=== PATIENT | female | born 1990 | race African-American/Black ===

== ENCOUNTER 2016-09-30 08:20 | Inpatient (IN) | payer BC ==
[2016-09-30] VITALS (9 sets, daily range): BP systolic 101–122; BP diastolic 60–77; Ht 157.5 cm; Wt 67.7 kg
[~2016-09-30] VITALS: Ht 157.5 cm; Wt 67.7 kg
[~2016-09-30 08:20] MED LIST: HYDROCODON-ACE1 EAC7 PO; IBUPROFEN600 MG
[2016-09-30 09:08] LABS: BASOPHILS 0.1 % (0.0-2.0); EOSINOPHILS 0.1 % (0-7); HEMATOCRIT 29.7 % (36.0-48.0); HEMOGLOBIN 9.9 g/dL (12-16); IMMATURE GRANULOCYTES 0.2 % (0-5); LYMPHOCYTES 6.3 % (15-50); MCH 28.2 pg (26.0-34.0); MCHC 33.3 g/dL (31.0-37.0); MCV 84.6 fL (80.0-100.0); MEAN PLATELET VOLUME 9.9 fL (7.4-10.4); MONOCYTES 2.9 % (2-11); NEUTROPHILS 90.4 % (40-80); RBC 3.51 10x6/uL (4.00-5.40)
[2016-09-30 09:15] LABS: HCG SERUM POSITIVE (NEGATIVE)
[2016-09-30 09:16] LABS: PLATELET COUNT 217 10x3/uL (130-400)
[2016-09-30 09:22] LABS: ALBUMIN 3.7 g/dL (3.4-5.0); ALKALINE PHOSPHATASE 69 U/L (46-116); ALT (SGPT) 17 U/L (10-68); AMYLASE - SERUM 31 U/L (25-115); BILIRUBIN - TOTAL 0.21 mg/dL (0.2-1.3); CALC OSMOLALITY 276 mosm/kg (275-300); CALCIUM 8.8 mg/dL (8.5-10.1); CARBON DIOXIDE 22.9 mmol/L (21.0-32.0); CHLORIDE - SERUM 105 mmol/L (98-107); CREATININE - SERUM 0.7 mg/dL (0.6-1.3); GLUCOSE 132 mg/dL (74-106); LIPASE 54 U/L (73-393); POTASSIUM - SERUM 3.4 mmol/L (3.5-5.1); PROTEIN - SERUM 7.1 g/dL (6.4-8.2); SODIUM 138 mmol/L (136-145); UREA NITROGEN 9 mg/dL (7-18); eGFR NON AFRICAN AMERICAN > 90 mL/min (90-120)
--- NOTE | 2016-09-30 16:16 | HP ---
PATIENT: WILTON BAUTISTA MEDICAL RECORD: [id number] ACCOUNT: [id number] LOCATION:[facility] : 91 ADMISSION DATE: 09/30/16 HISTORY AND PHYSICAL EXAMINATION HISTORY OF PRESENT ILLNESS: This patient is a 26-year-old 3, para 2 black female who presented to the Emergency Room with lower abdominal pain and cramping and was found to have a positive test unknown to her. Ultrasound reveals a in the cul-de-sac of about 5.3 weeks in size and bleeding in the abdomen. PAST MEDICAL HISTORY: DRUG ALLERGIES: None known. CURRENT MEDICATIONS: None. MEDICAL PROBLEMS: None known. PREVIOUS SURGERIES: None. FAMILY HISTORY: Noncontributory. REVIEW OF SYSTEMS: Positive for recent onset of abdominal pain and cramping, has not been using any control. HABITS: Nonsmoker. PHYSICAL EXAMINATION: VITAL SIGNS: Stable. HEENT: Grossly unremarkable. LUNGS: Clear. HEART: Regular rate and rhythm. ABDOMEN: Soft with tenderness throughout. PELVIC: Current per ER physician and not repeated. EXTREMITIES: No cyanosis, clubbing or edema. NEUROLOGIC: Grossly intact. IMPRESSION: Ectopic , bleeding. PLAN: Examination under anesthesia, laparoscopy, excision and removal of ectopic , control of bleeding, all indicated procedures. I have discussed this plan with the patient and answered all her questions and she agreed. TRANSINT:[id number] Voice Confirmation ID: [id number] DOCUMENT ID: [id number] HISTORY AND PHYSICAL [id number] WILTON BAUTISTA BRENDA MD at 1616 CC: [id number] DICTATION DATE: 09/30/16 1333 SUPERVISING EDITOR TRAILER: 09/30/[address] [facility] [address] [place] [address]
--- NOTE | 2016-09-30 19:20 | NUR ---
RECEIVED PATIENT FROM VIA BED AWAKE. TRANSFERRED TO BED WITHOUT DIFFICULTY. IVF--LR TO R AC @ 125cc/hr. IV SITE OK. GUEVARA CATH TO DRAINAGE BAG. V/S TAKEN. ASSESSMENT DONE. STATUS POST LAPAROSCOPY/ECTOPIC PREGRANCY. ORIENTED TO ROOM AND BED CONTROLS.
[2016-09-30 19:53] LABS: MCH 27.5 pg (26.0-34.0); MCHC 32.6 g/dL (31.0-37.0); MCV 84.4 fL (80.0-100.0); MEAN PLATELET VOLUME 9.9 fL (7.4-10.4); RDW 12.9 % (11.5-14.5)
[2016-09-30 19:56] LABS: RBC 2.62 10x6/uL (4.00-5.40); WBC 9.5 10x3/uL (4.8-10.8)
[2016-09-30 20:03] LABS: HEMATOCRIT 22.1 % (36.0-48.0); HEMOGLOBIN 7.2 g/dL (12-16)
--- NOTE | 2016-09-30 20:28 | NUR ---
PAIN LEVEL "5"/10 FROM ABD LAP INCISIONS. TORADOL 30mg IV GIVEN FOR BREAK-THROUGH PAIN.
--- NOTE | 2016-09-30 22:20 | NUR ---
FIRST UNIT OF PRBC STARTED WITH NICKO VALENCIA. V/S MONITORED EVERY 15min X4. NO ADVERSE REACTION NOTED.
[2016-10-01] VITALS (13 sets, daily range): BP systolic 97–114; BP diastolic 56–70
--- NOTE | 2016-10-01 00:50 | NUR ---
1ST UNIT OF PRBC INFUSED. NORMAL SALINE INFUSING.
--- NOTE | 2016-10-01 01:10 | NUR ---
2ND UNIT OF PRBC CHECKED AND STARTED WITH NICKO VALENCIA. V/S MONITORED EVERY 15min X4; 30min X2. NO ADVERSE REACTION NOTED.
--- NOTE | 2016-10-01 01:10 | NUR ---
SECOND UNIT OF PRBC STARTED AND CHECKED WITH NICKO VALENCIA. V/S MONITORED EVERY 15min X4.
--- NOTE | 2016-10-01 01:47 | NUR ---
GUEVARA CATH BAG EMPTIED. EYES CLOSED. LEFT UNDISTURBED.
--- NOTE | 2016-10-01 03:40 | NUR ---
2nd UNIT OF PRBC INFUSED. NO ADVERSE REACTION NOTED. NS INFUSING.
--- NOTE | 2016-10-01 04:15 | NUR ---
THIRD UNIT OF PRBC CHECKED AND STARTED WITH NICKO VALENCIA. V/S MONITORED EVERY 15min X4; 30min X2. NO ADVERSE REACTION NOTED.
--- NOTE | 2016-10-01 06:00 | NUR ---
GUEVARA SHIVANI PRICE'antonio. INSTRUCTED PATIENT SHE WILL NEED TO VOID WITH 4hrs AND TO CALL FOR ASSISTANCE WHEN GETTING OUT OF BED FOR THE FIRST TIME. WILL ALSO NEED TO MEASURE FIRST THREE VOIDS. VERBALIZED UNDERSTANDING.
--- NOTE | 2016-10-01 06:45 | NUR ---
THIRD UNIT OF PRBC INFUSED. NS INFUSING. NO ADVERSE REACTION NOTED.
--- NOTE | 2016-10-01 07:30 | NUR ---
RECEIVED PT LYING IN BED WATCHING TV. VSS. HEART RRR. LUNG SOUNDS CLEAR BILATERALLY. BOWEL SOUNDS ACTIVE X4 QUADRENTS. 3 LAPAROSCOPIC INCISIONS NOTED TO ABDOMEN COVERED WITH STERI STRIPS. DRESSINGS CDI. IV NOTED TO RIGHT AC. PATENT. DRESSING CDI. INFUSING NS @ 126 CC/HR. SCDS TO BLE. PT RATES PAIN 02/14. DENIES NEEDS AT THIS TIME. BED LOW. PHONE AND CALL LIGHT IN REACH. SIDE RAILS UP X2.
--- NOTE | 2016-10-01 07:42 | OP ---
PATIENT NAME: WILTON BAUTISTA MEDICAL RECORD: [id number] :89 LOCATION:[facility]1220 ADMISSION DATE:09/30/16 SURGEON: JAZLYN DAMON MD DATE OF OPERATION: 09/30/2016 PREOPERATIVE DIAGNOSIS: Ruptured ectopic . POSTOPERATIVE DIAGNOSIS: Ruptured ectopic . PROCEDURE: Laparoscopy, evacuation of hemoperitoneum and ectopic , left fimbriectomy. SURGEON: Jazlyn Damon MD ANESTHESIA: General. FINDINGS: Approximately 400 cc of blood and clots in the abdomen and pelvis, tissue consistent in appearance with ectopic in the cul-de-sac. Active bleeding from fimbriated end of left tube. ESTIMATED BLOOD LOSS: 75 cc from procedure. COMPLICATIONS: None. OPERATIVE NOTE: The patient was taken to the OR and under adequate general anesthesia, prepped and draped in the usual manner for abdominal and vaginal procedures with legs in floating boot Mirza stirrups. The anterior lip of the cervix was grasped with tenaculum. Intrauterine manipulator was placed and stabilized. Bladder was catheterized. An elliptical incision was made at the umbilicus and extended through subcutaneous tissue and fascia and peritoneum. The laparoscopic trocar sleeve was then inserted without difficulty. Abdomen was inflated with gas. A second and third puncture were then made in the lower abdomen, left lower quadrant and suprapubic area under direct visualization in order to allow manipulation of pelvic contents of surgical procedure. Exploration revealed the above listed findings. The blood and clots were evacuated from the abdomen and pelvis via suction. An area in the cul-de-sac appeared to have tissue consistent in appearance with ectopic . This was suctioned and fragments were gathered and sent to pathology for further evaluation. The pelvis and abdomen were again irrigated and observed and active bleeding was seen at the fimbriated end of the left tube and decision was made to remove this fimbriated end to stop the bleeding. This was done using bipolar cautery and the Harmonic scalpel. At the end of procedure, further irrigation was done and suctioning revealed no further bleeding. The tube appeared to be within normal limits. Ovaries appeared to be within normal limits. The abdomen was then deflated. All instruments removed. The fascial layer at the umbilicus and suprapubic incision were closed using interrupted #1 Vicryl suture. Skin incisions were closed using Dermabond. Steri-Strip dressing was applied. All instruments were removed from the vagina and the patient went to the recovery area in good condition. TRANSINT:[id number] Voice Confirmation ID: [id number] DOCUMENT ID: [id number] OPERATIVE REPORT [id number] WILTON BAUTISTA BRENDA MD at 0742 CC: [id number] DICTATION DATE: 09/30/161852 [employer] FITTER: 09/30/161952 ADM IN [place] [id number] [place] [address]
[2016-10-01 07:50] LABS: MCH 28.9 pg (26.0-34.0); MCV 85.1 fL (80.0-100.0); MEAN PLATELET VOLUME 10.2 fL (7.4-10.4); RDW 13.5 % (11.5-14.5); WBC 9.7 10x3/uL (4.8-10.8)
--- NOTE | 2016-10-01 08:00 | NUR ---
PT IS SITTING IN BED THIS AM. OFFERS NO COMPLAINTS. SHE HAS 3 LAP INC WHICH ARE CLEAN AND DRY. GUEVARA WAS REMOVED AT 0600. PT HAS NOT VOIDED YET. IV INTACT AND PATENT R AC. VSS.
[2016-10-01 08:04] LABS: HEMATOCRIT 29.1 % (36.0-48.0); HEMOGLOBIN 9.9 g/dL (12-16); RBC 3.42 10x6/uL (4.00-5.40)
--- NOTE | 2016-10-01 08:45 | NUR ---
PT UP TO TRY AND USE RESTROOM. PT WAS UNABLE TO GO. PT BACK IN BED AND STATES SHE WILL TRY AGAIN IN A LITTLE BIT. DENIES NEEDS. BED LOW. PHONE AND CALL LIGHT IN REACH. SIDE RAILS UP X2.
--- NOTE | 2016-10-01 08:55 | NUR ---
PT SITTING UP IN BED WATCHING TV. RATES PAIN 02/14. ADMINISTERED TORADOL IVP. PT DENIES FURTHER NEEDS. BED LOW. PHONE AND CALL LIGHT IN REACH. SIDE RAILS UP X2.
--- NOTE | 2016-10-01 09:30 | NUR ---
PT LYING IN BED WATCHING TV. REASSESSED PAIN. PT RATES PAIN 5/10. DENIES OTHER NEEDS AT THIS TIME. BED LOW. PHONE AND CALL LIGHT IN REACH. SIDE RAILS UP X2
--- NOTE | 2016-10-01 10:14 | NUR ---
PT LYING IN BED WATCHING TV. PT VOIDED 700 ML YELLOW URINE. LIGHT LOCHIA RUBRA NOTED TO MALDONADO PAD. PT REQUESTED SPRITE. RATES PAIN 5/10. ADMINISTERED DEMEROL PO. PT DENIES FURTHER NEEDS. BED LOW. PHONE AND CALL LIGHT IN REACH. SIDE RAILS UP X2.
--- NOTE | 2016-10-01 10:48 | NUR ---
PT LYING IN BED WATCHING TV. REASSESSED PAIN. PT RATES PAIN 5/10. DENIES OTHER NEEDS AT THIS TIME. BED LOW. PHONE AND CALL LIGHT IN REACH. SIDE RAILS UP X2.
--- NOTE | 2016-10-01 11:30 | NUR ---
PT SITTING UP IN BED WATCHING TV. RATES PAIN 4/10. REQUESTS SPRITE. VOIDED 400 ML URINE. PT STATES LOCHIA IS LIGHT. DENIES OTHER NEEDS. BED LOW. PHONE AND CALL LIGHT IN REACH. SIDE RAILS UP X2.
--- NOTE | 2016-10-01 11:40 | NUR ---
PT SITTING UP IN BED EATING BREAKFAST. SALINE LOCKED PT IV. PT DENIES FURTHER NEEDS AT THIS TIME. BED LOW. PHONE AND CALL LIGHT IN REACH. SIDE RAILS UP X2.
--- NOTE | 2016-10-01 12:20 | NUR ---
PT UP USING RESTROOM. 400 ML URINE VOIDED. PT STATES THAT THE DEMEROL PO IS NOT WORKING VERY WELL AND RATES PAIN 4/10. ASKS IF DR DAMON WOULD SEND HYDROCODONE PO HOME INSTEAD. INFORMED PT I WOULD CONTACT DR. DAMON ABOUT MEDICATION CHANGE. DENIES FURTHER NEEDS.
--- NOTE | 2016-10-01 13:00 | NUR ---
PT LYING IN BED RESTING. DENIES NEEDS AT THIS TIME. BED LOW. PHONE AND CALL LIGHT IN REACH. SIDE RAILS UP X2.
[2016-10-01] MEDS ORDERED: IBUPROFEN600 MG PO (14:15)
[2016-10-01] MEDS ORDERED: HYDROCODON-ACE1 EAC7 PO (14:15)
--- NOTE | 2016-10-01 14:30 | NUR ---
REMOVED PT IV. CATHETER TIP INTACT.
--- NOTE | 2016-10-01 14:40 | NUR ---
DISCUSSED DISCHARGE INSTRUCTIONS WITH PT. INCLUDED: WOUND CARE, MEDICATIONS, ACTIVITY LIMITATIONS, SIGNS/SYMPTOMS OF INFECTION, AND FOLLOW UP APPOINTMENT. PRESCRIPTIONS GIVEN. PT VERBALIZES UNDERSTANDING. REMOVED PT IV CATHETER. TIP INTACT. PT DISCHARGED TO AWAITING VEHICLE VIA WHEELCHAIR.
== END 2016-10-01 14:40 | disposition home or self-care (01) | DRG 777 ==
LOC: D.ER 08:20 → D.OPS 08:20 → EDSTATUS 13:55 → D.WS 18:45
PROVIDERS: Emergency Medicine; ADMIT Obstetrics & Gynecology
PROC: 10T24ZZ Resection of Products of Conception, Ectopic, Percutaneous Endoscopic Approach (ICD-10-PCS; principal; 2016-09-30 15:00)
PROC: 0UB64ZZ Excision of Left Fallopian Tube, Percutaneous Endoscopic Approach (ICD-10-PCS; principal; 2016-09-30 15:00)
DX: O00.10 Tubal pregnancy without intrauterine pregnancy (principal); O99.011 Anemia complicating pregnancy, first trimester; Z3A.01 Less than 8 weeks gestation of pregnancy

== ENCOUNTER → 2019-07-14 12:20 | Outpatient (CLI) | payer OTHER ==
[2016-09-30 20:30] VITALS: BMI 27.3
[~2019-07-14 12:20] MED LIST changes: +IBUPROFEN600 MG PO
== END | disposition home or self-care (01) ==
LOC: D.US 12:20
PROVIDERS: ATTEND Obstetrics & Gynecology
DX: R10.2 Pelvic and perineal pain (principal)

== ENCOUNTER 2020-03-23 17:12 | Emergency (ER) | payer OTHER ==
[2020-03-23 17:40] VITALS: Ht 157.5 cm
[2020-03-23 18:19] LABS: BASOPHILS 0.2 % (0-2); EOSINOPHILS 2.9 % (0-7); HEMATOCRIT 30.3 % (36.0-48.0); HEMOGLOBIN 9.7 g/dL (12-16); IMMATURE GRANULOCYTES 0.1 % (0-5); MCV 81.2 fL (80.0-100.0); MEAN PLATELET VOLUME 10.2 fL (7.4-10.4); MONOCYTES 6.8 % (2-11); RBC 3.73 10x6/uL (4.00-5.40); WBC 8.4 10x3/uL (4.8-10.8)
[2020-03-23 18:22] LABS: PLATELET COUNT 234 10x3/uL (130-400)
[2020-03-23 18:26] LABS: CALC OSMOLALITY 267 mosm/kg (275-300); CALCIUM 8.4 mg/dL (8.5-10.1); CARBON DIOXIDE 26.2 mmol/L (21.0-32.0); CHLORIDE - SERUM 102 mmol/L (98-107); CREATININE - SERUM 0.8 mg/dL (0.6-1.3); GLUCOSE 80 mg/dL (74-106); POTASSIUM - SERUM 3.3 mmol/L (3.5-5.1); SODIUM 135 mmol/L (136-145); UREA NITROGEN 11 mg/dL (7-18); eGFR NON AFRICAN AMERICAN 90 mL/min (90-120)
[2020-03-23 18:34] LABS: HCG SERUM POSITIVE (NEGATIVE)
[2020-03-23 18:36] LABS: ALBUMIN 3.9 g/dL (3.4-5.0); ALKALINE PHOSPHATASE 67 U/L (30-120); ALT (SGPT) 15 U/L (10-68); BILIRUBIN - TOTAL 0.23 mg/dL (0.2-1.3); PROTEIN - SERUM 7.4 g/dL (6.4-8.2)
[2020-03-23 22:00] VITALS: BP 136/77
== END 2020-03-23 22:03 | disposition home or self-care (01) ==
LOC: D.ER 17:12
PROVIDERS: Family Medicine
DX: O20.9 Hemorrhage in early pregnancy, unspecified (principal); Z3A.00 Weeks of gestation of pregnancy not specified; M25.512 Pain in left shoulder